=== PATIENT | female | born 1995 | race Hispanic/Latino ===

== ENCOUNTER → 2020-04-16 | Day surgery (SDC) | payer OTHER ==
[~2020-04-16] MED LIST: BUPIVACAINE HCL 0.5% INJ 30 ML VIAL INJ ONE; CEFAZOLIN SOD 1 GM/NS 50ML 50 ML IV ONE; DEXAMETHASONE SOD PHOS INJ 4 MG/ML VIAL ONE; KETOROLAC TROMETHAMINE 30 MG/ML VIAL ONE; LIDOCAINE HCL 2% LOCAL INJ 5 ML SDV VIAL INJ ONE; MEPERIDINE HCL INJ 25 MG/ML VIAL ONE; ONDANSETRON HCL INJ 2MG/ML 2ML 2 MG/ML VIAL ONE; PROPOFOL IV EMULSION 10 MG/ML 20 ML VIAL ONE; SEVOFLURANE INHAL SOLN 250 ML PEN BTL ONE
[2020-04-16 08:07] VITALS: BP 124/82
--- NOTE | 2020-04-16 08:53 | Operative Report ---
DATE OF PROCEDURE: 04/16/2020 SURGEON: Shira Mckeon DPM PREOPERATIVE DIAGNOSES: 1. Left foot hallux valgus. 2. Left foot hallux interphalangeus. POSTOPERATIVE DIAGNOSES: 1. Left foot hallux valgus. 2. Left foot hallux interphalangeus. PLANNED PROCEDURES: 1. Left Cong bunionectomy with 1st metatarsal osteotomy and internal fixation. 2. Left Carmelo osteotomy with internal fixation. BLACK STUDIES PROFESSOR: Yoon Bal DPM ([place]) ANESTHESIA: General with a postoperative block consisting of 15 mL of 0.5% Marcaine plain mixed with 1 mL of dexamethasone phosphate. HEMOSTASIS: Pneumatic thigh tourniquet set at 350 mmHg for a total time approximately 40 minutes. MATERIALS: Two 2.0 mm x 14 mm cortical bone screws, one size 10 x 10 staple ThoughtSpot. 2-0 Vicryl, 3-0 Vicryl, and 4-0 Monocryl. ESTIMATED BLOOD LOSS: Less than 10 mL. PATHOLOGY: None. DESCRIPTION OF PROCEDURE: The patient was seen in the preoperative waiting room with the correct procedure and site was identified. The patient was brought to the operating room and placed on the operating table in the supine position. General anesthesia was initiated. At this time, a well-padded pneumatic tourniquet was placed about the patient's left thigh. The left foot, ankle, and leg were then scrubbed, prepped, and draped in the usual aseptic manner. The left foot, ankle, and leg was exsanguinated with an Esmarch bandage. The pneumatic thigh tourniquet was inflated to 350 mmHg for a total time of approximately 40 minutes. Attention was directed to the dorsal medial aspect of the patient's left 1st metatarsophalangeal joint, where a 6 cm curvilinear incision was made directly over the joint medial to the extensor hallucis longus tendon. The incision was carried through subcutaneous tissue them from deep or underlying structures. All vital and neurovascular structures were identified, retracted medially and laterally and all bleeders were cauterized or ligated as deemed necessary. Next, dissection was carried down to the 1st interspace through the same incision where a full lateral release was performed consisting of a deep transverse metatarsal ligament, lateral collateral ligament, as well as the fibular sesamoidal ligament. The hallux was then put through range of motion and found to be functioning in more proper anatomic alignment. Next, attention was directed back to the 1st metatarsophalangeal joint where using a sagittal saw, the medial eminence was resected and passed off to the back table. Next, a medial to lateral Chevron osteotomy was performed with a dorsal wing longer to allow for proper fixation. The capital fragment was transposed laterally approximately 2-3 mm and impacted onto the shaft of the 1st metatarsal. This was temporarily fixated with a K-wire and permanently fixated utilizing techniques of AO fixation with two 2.0 mm x 14 mm cortical bone screws. Next, the dissection was carried down to the level of the distal shaft of the proximal phalanx where utilizing a sagittal saw, an osteotomy was performed with the apex lateral and the wedge medial leaving the lateral cortex intact. The osteotomy was fixated utilizing one 10 mm x 10 mm cortical Nitinol AgSquared staple. The wound was then copiously irrigated with sterile saline. Capsule and deep tissue were reapproximated with 2-0 Vicryl, subcutaneous tissue with 3-0 Vicryl, and the skin was closed using a running subcuticular suture with 4-0 Monocryl. The skin was reinforced utilizing Mastisol and quarter-inch Steri-Strips. The patient tolerated the procedure and anesthesia well. The patient was transferred to the postoperative recovery room with vital signs stable and vascular status intact. The patient was monitored there for a short period time before being sent home with the following written and oral instructions. 1. Keep the dressing clean, dry, and intact. 2. The patient is to remain partial heel touch weightbearing with crutches to the left lower extremity to avoid any ambulation until being seen in the office. 3. The patient was given office number and instructed to contact us if any problems arise. LAURY Lyon/MODL /[id number]
== END | disposition home or self-care (01) ==
LOC: OR 05:10
PROVIDERS: ATTEND Podiatrist Foot & Ankle Surgery
DX: M20.12 Hallux valgus (acquired), left foot (principal); M20.5X2 Other deformities of toe(s) (acquired), left foot; Z01.812 Encounter for preprocedural laboratory examination; Z11.59 Encounter for screening for other viral diseases
CPT/HCPCS: 28299; 81025; C1713; J0690; J1100; J1885; J2001; J2175; J2405; J2704; U0002